=== PATIENT | male | born 1970 | race Caucasian/White ===

== ENCOUNTER 2018-10-12 12:52 | Day surgery (SDC) | payer OTHER ==
[2018-10-12] MEDS ORDERED: FENTAnyl 50 MCG/ML VIAL (15:32)
[2018-10-12] MEDS ORDERED: PROPOFOL 20 ML (15:32)
[2018-10-12] MEDS ORDERED: LIDOCAINE 100 MG SYRINGE (15:32)
[2018-10-12] MEDS ORDERED: PROPOFOL 40 ML (15:41)
[2018-10-12] MEDS ORDERED: SUCCINYLCHOLINE CHLORIDE 100 MG/5 ML SYG IV (15:43)
== END 2018-10-12 17:46 | disposition home or self-care (01) ==
LOC: GIL 12:52
DX: Z12.11 Encounter for screening for malignant neoplasm of colon (principal); K29.60 Other gastritis without bleeding; I10 Essential (primary) hypertension
CPT/HCPCS: 43239; 88305